=== PATIENT | female | born 1990 | race Caucasian/White ===

== ENCOUNTER 2016-12-24 11:12 | Emergency (ER) | payer OTHER ==
[2016-12-24 11:51] LABS: COLOR YELLOW; LEUKOCYTE ESTERASE,URINE NEGATIVE (NEGATIVE); NITRITE,URINE NEGATIVE (NEGATIVE)
--- NOTE | 2016-12-24 11:52 | EDPHY ---
H & P Stated Complaint: intercourse sun/condom broke/started plan b/vaginal pain friday Time Seen by Provider: 12/24/16 11:25 HPI/ROS: CHIEF COMPLAINT: Suprapubic pain HISTORY OF PRESENT ILLNESS: 26-year-old female describes suprapubic pain for the past 2 days. This pain started the morning after intercourse at which point the condom broke however there is no condom in her vagina. The next morning she was EN route to pharmacy to by Plan B and developed exquisite vaginal/suprapubic pain. She then completed a course of Plan B. She had similar pain this morning and came to the ER for evaluation. She denies: Dysuria, hematuria, diarrhea, vomiting, dyspareunia, flu-like symptoms, lesions, rash, dyspareunia vaginal bleeding or discharge, history of STD, back or flank pain REVIEW OF SYSTEMS: A ten point review of systems was performed and is negative with the exception of the items mentioned in the HPI PAST MEDICAL & SURGICAL HISTORY: No pertinent medical or surgical history SOCIAL HISTORY: Nonsmoker PHYSICAL EXAM (Prior to examination, patient consented to physical exam, hands were washed and my usual and customary physical exam procedures followed) 1) GENERAL: Well-developed, well-nourished, alert and oriented. Appears to be in no acute distress. 2) HEAD: Normocephalic, atraumatic 3) HEENT: Pupils equal, round, reactive to light bilaterally. Sclera anicteric. 4) NECK: Full range of motion, no meningeal signs. 5) LUNGS: Clear auscultation bilaterally, no wheezes, no rhonchi, no retractions. 6) HEART: Regular rate and rhythm, no murmur, no heave, no gallop. 7) ABDOMEN: No guarding, no rebound, no focal tenderness, negative McBurney's, negative Butcher's, negative Rovsing's, negative peritoneal sign, I am unable to elicit any abdominal pain on exam 8) MUSCULOSKELETAL: Moving all extremities, no focal areas of tenderness, no obvious trauma. No peripheral edema or discoloration. 9) BACK: No CVA tenderness, no midline vertebral tenderness, no fluctuance, no step-off, no obvious trauma, no visual or palpable abnormality. 10) SKIN: No rash, no petechiae. 11) PELVIC (with female tech Raquel at bedside): Normal female external genitalia, no lesions visualized. Speculum examination reveals no vaginal bleeding or discharge, normal vaginal rugae, os closed, no cervical motion tenderness, no adnexal tenderness or mass, . DIFFERENTIAL DIAGNOSIS: My differential diagnosis includes, but is not limited to, acute appendicitis, acute cholecystitis, bowel obstruction, acute pancreatitis, ovarian torsion, ectopic ,and urinary tract infection. The patient understands that this diagnosis is provisional and can never be 100 % accurate. This is a partial list of diagnoses considered. These considerations are based on history, physical exam, past history and reassessment. - Personal History LMP (Females 10-55): 22-28 Days Ago Current Tetanus/Diphtheria Vaccine: Yes - Medical/Surgical History Hx Asthma: No Hx Chronic Respiratory Disease: No Hx Diabetes: No Hx Cardiac Disease: No Hx Renal Disease: No Hx Cirrhosis: No Hx Alcoholism: No Hx HIV/AIDS: No Hx Splenectomy or Spleen Trauma: No Other PMH: DENIES - Social History Smoking Status: Current every day smoker Constitutional: Initial Vital Signs Temperature (C) 36.7 C 12/24/16 11:18 Heart Rate 78 12/24/16 11:18 Respiratory Rate 18 12/24/16 11:18 Blood Pressure 129/88 H 12/24/16 11:18 O2 Sat (%) 97 12/24/16 11:18 O2 Delivery Mode Room Air Allergies/Adverse Reactions: nickel Allergy (Verified 12/24/16 11:18) Home Medications: Medication Instructions Recorded Hydrocodone/APAP 5/325 [[place] 1 tab PO Q6 PRN #4 tab 12/24/16 5/325 (RX)] Plan B One-Step 12/24/16 Medical Decision Making - Diagnostics Imaging Results: Imaging Impressions Pelvic/Renal Ultrasound 12/24/16 11:50 Impression: There is a 1.9 cm hemorrhagic follicular cyst associated with the right ovary, with no evidence of torsion or free fluid. Findings were discussed with Cathy Michel PA-C at 12:47, on 12/24/2016. ED Course/Re-evaluation: 12:59 p.m.: Patient was re-evaluated with serial examinations. We discussed her negative test, urinalysis negative pyuria or bacteria and her ultrasound showing normal ovarian flow. Doubt ectopic , doubt ovarian torsion doubt pelvic inflammatory disease. Doubt acute appendicitis absence of pain McBurney's point and other symptoms consistent with acute appendicitis. She is noted to have ovarian cyst on ultrasound. Discussed this with her. I think the patient can be discharged. We discussed analgesia and supportive therapy. Given usual customary [employer]PERATOR precautions instructions. Recommend care tech follow-up. She feels comfortable being discharged.. - Data Points Laboratory Results: 12/24/16 12/24/16 11:30 11:30 Urine Color YELLOW Urine Appearance HAZY Urine pH 7.0 (5.0-7.5) Ur Specific [place] 1.012 (1.002-1.030) Urine Protein NEGATIVE (NEGATIVE) Urine Ketones NEGATIVE (NEGATIVE) Urine Blood 1+ H (NEGATIVE) Urine Nitrate NEGATIVE (NEGATIVE) Urine Bilirubin NEGATIVE (NEGATIVE) Urine Urobilinogen NEGATIVE EU EU (0.2-1.0) Ur Leukocyte Esterase NEGATIVE (NEGATIVE) Urine RBC 1-3 /hpf /hpf (0-3) Urine WBC 1-3 /hpf /hpf (0-3) Ur Epithelial Cells 2+ /lpf H /lpf (NONE-1+) Urine Mucus TRACE /lpf /lpf (NONE-1+) Urine Glucose NEGATIVE (NEGATIVE) Urine Test NEGATIVE Departure - Departure Disposition: Home, Routine, Self-Care Clinical Impression: Ovarian cyst Qualifiers: Laterality: right Qualified Code(s): N83.201 - Unspecified ovarian cyst, right side Condition: Good Instructions: Ovarian Cyst (ED) Additional Instructions: Seek immediate medical attention if you develop new or worsening symptoms, if you develop fevers, chills, inability to tolerate oral intake or any other symptoms that concerns you. Adult Pain & Fever Control: We recommend Acetaminophen (Tylenol) and Ibuprofen (Motrin,Advil) for pain and fever control. When fever is high or pain severe, both drugs can be used at the same time, but at different intervals. Please note the time differences. Your dose is: Acetaminophen 650mg every 4 to 6 hours Ibuprofen 600mg every hours with food OR Note: do not take Acetaminophen with Hydrocodone (Vicodin, Lortab) or Oycodone (Percocet). These medications also contain Acetaminophen. No more than 3000mg of Acetaminophen should be taken in 24 hours (for an adult). Referrals: Vidhya Gross DO [Doctor of Osteopathy] - 1-2 days without fail Prescriptions: Hydrocodone/APAP 5/325 [[place] 5/325 (RX)] 1 tab PO Q6 PRN #4 tab PRN Reason: Pain, Severe
[2016-12-24 11:56] LABS: MUCUS TRACE /lpf (NONE-1+)
[2016-12-24 13:19] VITALS: BP 135/76; PULSE 75; RESP 16; TEMP 97.7; O2SAT 95
[2016-12-25 13:13] LABS: CHLAMYDIA AMPLIFICATION GENPRB NEGATIVE (NEGATIVE)
== END 2016-12-24 13:13 | disposition home or self-care (01) ==
DX: N83.201 Unspecified ovarian cyst, right side (principal); F17.200 Nicotine dependence, unspecified, uncomplicated

== ENCOUNTER → 2018-08-03 | Outpatient (CLI) | payer OTHER | LOC: MERGE 15:35 → EMCIMAGING 15:35 | PROVIDERS: ATTEND Registered Nurse | DX: R10.30 Lower abdominal pain, unspecified (principal); Z87.42 Personal history of other diseases of the female genital tract; Z97.5 Presence of (intrauterine) contraceptive device | CPT/HCPCS: 76856-PN ==